=== PATIENT | female | born 1995 | race African-American/Black ===

== ENCOUNTER 2017-01-27 19:30 | Emergency (ER) | payer MEDICAID ==
[~2017-01-27] VITALS: Ht 160 cm; Wt 85.0 kg
[~2017-01-27 19:30] MED LIST: FLUO10TA3 PO; NO MEDS; divalproex sodium PO
[2017-01-27 22:06] LABS: CLARITY URINE CLEAR (CLEAR); COLOR URINE YELLOW (YELLOW); KETONES URINE NEGATIVE (NEGATIVE); LEUKOCYTE ESTERASE URINE NEGATIVE (NEGATIVE); NITRITE URINE NEGATIVE (NEGATIVE); OCCULT BLOOD URINE NEGATIVE (NEGATIVE); PROTEIN URINE NEGATIVE (NEGATIVE); SPECIFIC GRAVITY URINE 1.004 (1.005-1.030); UROBILINOGEN URINE 0.2 E.U./dL (0.2-1.0)
[2017-01-27 22:30] LABS: *AMPHETAMINES SCREEN URINE NEGATIVE (NEGATIVE); *BARBITURATES SCREEN URINE NEGATIVE (NEGATIVE); *BENZODIAZEPINES SCREEN URINE NEGATIVE (NEGATIVE); *COCAINE SCREEN URINE NEGATIVE (NEGATIVE); CANNABINOID URINE SCREEN NEGATIVE (NEGATIVE); METHADONE URINE SCREEN NEGATIVE (NEGATIVE); OPIATES URINE SCREEN NEGATIVE (NEGATIVE); PHENCYCLIDINE URINE SCREEN NEGATIVE (NEGATIVE)
[2017-01-27 22:39] LABS: BASOPHILS % 0.8 % (0.0-2.0); EOSINOPHILS % 1.4 % (0.0-5.0); HEMATOCRIT. 38.2 % (36.0-48.0); LYMPHOCYTES % 26.4 % (20.0-50.0); MEAN CORPUSCULAR HEMOGLOBIN 29.7 pg (28.0-32.0); MEAN CORPUSCULAR VOLUME 87.2 fL (81.0-99.0); MEAN PLATELET VOLUME 9.2 fl (7.4-10.4); MONOCYTES % 4.7 % (2.0-8.0); NEUTROPHILS % 66.7 % (40.0-76.0); PLATELET 256 x1000/uL (130-400); RED BLOOD CELL COUNT 4.38 mill/uL (4.2-5.4); RED CELL DISTRIBUTION WIDTH 12.7 % (11.6-14.6)
[2017-01-27 22:50] LABS: CARBON DIOXIDE 26 mEq/L (21-32); CHLORIDE 103 mEq/L (98-107); ETHANOL BLOOD < 10 mg/dL
[2017-01-28] MEDS ORDERED: ARIPIPRAZOLE 10MG TABLET PO ONE (00:15)
[2017-01-28] MEDS ORDERED: ARIPIPRAZOLE 5MG TABLET PO ONE (00:30)
[2017-01-28 22:47] VITALS: BP 120/72
== END 2017-01-28 23:35 ==
LOC: ER 19:55
DX: R45.851 Suicidal ideations (principal); F33.3 Major depressive disorder, recurrent, severe with psychotic symptoms; R11.10 Vomiting, unspecified; N92.6 Irregular menstruation, unspecified; Z88.5 Allergy status to narcotic agent
CPT/HCPCS: 36415; 80053; 80305; 80307; 80329; 81003; 81025; 82962; 85025; 99285; G0482

== ENCOUNTER 2017-10-09 14:30 | Inpatient (IN) | payer MEDICAID ==
[~2017-10-09] VITALS: Ht 162.6 cm; Wt 90.7 kg
[2017-10-09 15:06] LABS: CLARITY URINE CLEAR (CLEAR); COLOR URINE DARK YELLOW (YELLOW); KETONES URINE 3+ (NEGATIVE); LEUKOCYTE ESTERASE URINE NEGATIVE (NEGATIVE); NITRITE URINE NEGATIVE (NEGATIVE); OCCULT BLOOD URINE NEGATIVE (NEGATIVE); PH URINE 5.5 (4.5-8.0); PROTEIN URINE 1+ (NEGATIVE); SPECIFIC GRAVITY URINE 1.025 (1.005-1.030)
[2017-10-09 15:39] LABS: CHLORIDE 101 mEq/L (98-107)
[2017-10-09 15:40] LABS: BASOPHILS % 0.6 % (0.0-2.0); EOSINOPHILS % 0.6 % (0.0-5.0); HEMOGLOBIN. 14.6 g/dL (12.0-16.0); LYMPHOCYTES % 13.3 % (20.0-50.0); MEAN CORPUSCULAR HEMOGLOBIN 31.1 pg (28.0-32.0); MEAN CORPUSCULAR VOLUME 89.2 fL (81.0-99.0); MEAN PLATELET VOLUME 9.6 fl (7.4-10.4); MONOCYTES % 3.3 % (2.0-8.0); NEUTROPHILS % 82.2 % (40.0-76.0); PLATELET 331 x1000/uL (130-400); RED BLOOD CELL COUNT 4.71 mill/uL (4.2-5.4); RED CELL DISTRIBUTION WIDTH 13.2 % (11.6-14.6)
[2017-10-09 15:41] LABS: INR 1.2; PROTHROMBIN TIME 12.2 sec (9.4-11.6)
[2017-10-09] MEDS ORDERED: IOHEXOL-300 100 ML BOTTLE ONE (19:20)
[2017-10-09] MEDS ORDERED: BUPRO PO (23:50)
[2017-10-09] MEDS ORDERED: CARI3CAP PO (23:52)
[2017-10-09] MEDS ORDERED: BUPR150T9 PO (23:54)
[2017-10-10] VITALS: BP 127/82
[2017-10-10 00:05] VITALS: BP 127/82
[2017-10-10] MEDS ORDERED: MAGNESIUM/ALUMINUM HYDROXIDE/SIMETHICONE 30ML UDC PO PRN ×2 (00:15→09:45)
[2017-10-10] MEDS ORDERED: KETOROLAC 30MG/ML VIAL IV PRN (00:15)
[2017-10-10] MEDS ORDERED: ONDANSETRON 4MG ODT PO PRN (00:15)
[2017-10-10] MEDS ORDERED: HYDROCODONE/ACETAMINOPHEN 5/325MG TABLET PO PRN ×2 (00:15→09:45)
[2017-10-10] MEDS ORDERED: IPRATROPIUM/ALBUTEROL 0.5-3(2.5)MG/3ML NEB INH PRN (00:15)
[2017-10-10] MEDS ORDERED: MVI, ADULT NO.1 10 ML, FOLIC ACID 1 MG, THIAMINE HCL 100 MG in SODIUM CHLORIDE 0.9% 1,0... IV NR ×4 (02:00)
[2017-10-10 04:00] VITALS: BP 102/59
[2017-10-10 05:37] LABS: BASOPHILS % 0.2 % (0.0-2.0); EOSINOPHILS % 1.2 % (0.0-5.0); HEMATOCRIT. 38.6 % (36.0-48.0); HEMOGLOBIN. 13.1 g/dL (12.0-16.0); LYMPHOCYTES % 22.1 % (20.0-50.0); MEAN CORPUSCULAR HEMOGLOBIN 30.4 pg (28.0-32.0); MEAN CORPUSCULAR VOLUME 89.7 fL (81.0-99.0); MEAN PLATELET VOLUME 9.5 fl (7.4-10.4); MONOCYTES % 7.6 % (2.0-8.0); NEUTROPHILS % 68.9 % (40.0-76.0); PLATELET 279 x1000/uL (130-400); RED CELL DISTRIBUTION WIDTH 13.2 % (11.6-14.6)
[2017-10-10 05:58] LABS: CHLORIDE 103 mEq/L (98-107)
[2017-10-10 06:15] LABS: CREATINE KINASE 69 IU/L (26-192); CREATINE KINASE MB FRACTION < 0.5 ng/mL (0.5-3.6); HDL CHOLESTEROL 47 mg/dL (40-59); LDL CHOLESTEROL 106 mg/dL (5-100)
[2017-10-10 08:02] VITALS: BP 109/77
[2017-10-10 08:43] LABS: *AMPHETAMINES SCREEN URINE NEGATIVE (NEGATIVE); *BARBITURATES SCREEN URINE NEGATIVE (NEGATIVE); *BENZODIAZEPINES SCREEN URINE NEGATIVE (NEGATIVE)
[2017-10-10 08:45] LABS: *COCAINE SCREEN URINE NEGATIVE (NEGATIVE); CANNABINOID URINE SCREEN NEGATIVE (NEGATIVE); METHADONE URINE SCREEN NEGATIVE (NEGATIVE); OPIATES URINE SCREEN NEGATIVE (NEGATIVE); PHENCYCLIDINE URINE SCREEN NEGATIVE (NEGATIVE)
[2017-10-10] MEDS ORDERED: BUPROPION HCL 150MG TABLET XL 24HR PO SCH (09:00)
[2017-10-10] MEDS ORDERED: CARIPRAZINE HYDROCHLORIDE 3 MG PO SCH (09:00)
[2017-10-10] MEDS ORDERED: FLUOXETINE HCL 10 MG CAPSULE PO SCH (09:00)
[2017-10-10] MEDS ORDERED: ENOXAPARIN 30MG/0.3ML SYR SUBCUT SCH (09:00)
[2017-10-10] MEDS ORDERED: FLUOXETINE HCL PO SCH (09:00)
[2017-10-10] MEDS ORDERED: DIVALPROEX SODIUM 125MG EC TABLET PO SCH (09:00)
[2017-10-10] MEDS ORDERED: DIVALPROEX SODIUM 125 MG PO SCH (09:00)
[2017-10-10] MEDS ORDERED: LORAZEPAM 0.5MG TABLET PO PRN (09:45)
[2017-10-10] MEDS ORDERED: HYDROCODONE/ACETAMINOPHEN 10/325MG TABLET PO PRN (09:45)
[2017-10-10] MEDS ORDERED: NA PHOS,M-B/NA PHOS,DI-BA ENEMA 118ML PR PRN (09:45)
[2017-10-10] MEDS ORDERED: DOCUSATE SODIUM 100MG CAPSULE PO PRN (09:45)
[2017-10-10] MEDS ORDERED: ACETAMINOPHEN 325MG TABLET PO PRN (09:45)
[2017-10-10] MEDS ORDERED: ONDANSETRON HCL 4MG/2ML VIAL IV PRN (09:45)
[2017-10-10] MEDS ORDERED: ACETAMINOPHEN 650MG SUPP PR PRN (09:45)
[2017-10-10] MEDS ORDERED: DIPHENHYDRAMINE 50MG/ML VIAL IV PRN (09:45)
[2017-10-10] MEDS ORDERED: ACETAMINOPHEN 650MG/20.3ML UDC GT PRN (09:45)
[2017-10-10] MEDS ORDERED: GUAIFENESIN 200MG/10ML SUGAR FREE UDC PO PRN (09:45)
[2017-10-10] MEDS ORDERED: CLONIDINE 0.1MG TABLET PO PRN (09:45)
[2017-10-10 10:46] LABS: HCG SCREEN NEGATIVE
[2017-10-10] MEDS ORDERED: SODIUM CHLORIDE 0.9% 1,000 ML IV SCH (11:00)
[2017-10-10 12:06] VITALS: BP 111/60
[2017-10-10 12:07] LABS: HEPATITIS B SURFACE ANTIGEN NEGATIVE
[2017-10-10 12:35] LABS: HEPATITIS B CORE AB IGM NEGATIVE
[2017-10-10 12:37] LABS: HEPATITIS A AB IGM NEGATIVE (NEGATIVE)
[2017-10-10 13:50] VITALS: BP 111/60
[2017-10-10] MEDS ORDERED: ATORVASTATIN CALCIUM 10MG TABLET PO SCH (21:00)
== END 2017-10-10 15:12 | disposition home or self-care (01) | DRG 282 ==
LOC: ER 14:30 → 6EST 20:11 → ENRESERV 22:28
PROVIDERS: ADMIT Internal Medicine; ATTEND Internal Medicine
DX: K85.90 Acute pancreatitis without necrosis or infection, unspecified (principal); K76.0 Fatty (change of) liver, not elsewhere classified; E11.65 Type 2 diabetes mellitus with hyperglycemia; F32.9 Major depressive disorder, single episode, unspecified; E78.1 Pure hyperglyceridemia; R74.0 Nonspecific elevation of levels of transaminase and lactic acid dehydrogenase [LDH]; K85.00 Idiopathic acute pancreatitis without necrosis or infection; Z88.6 Allergy status to analgesic agent; Z79.899 Other long term (current) drug therapy
CPT/HCPCS: 36415; 71045; 74022; 74177; 76857; 80053; 80061; 80165; 80305; 81003; 81025; 82550; 82553; 83036; 83690; 84443; 84484; 84703; 85025; 85610; 86705; 86709; 86803; 87040; 87086; 87340; 93970; 99285; G0482; J1650; J3411; J3490; J7030; Q9967

== ENCOUNTER 2022-08-04 18:28 | Emergency (ER) | payer MEDICAID ==
[~2022-08-04] VITALS: Ht 162.6 cm; Wt 77.0 kg
[~2022-08-04 18:28] MED LIST changes: +BUPR-114 PO; +BUPRO PO; +CARI3CAP PO
[2022-08-04 18:48] VITALS: BP 133/79
[2022-08-04] MEDS ORDERED: DEXAMETHASONE 10 MG/ML VIAL IV ONE (21:15)
== END 2022-08-04 21:50 | disposition home or self-care (01) ==
LOC: ER 18:28
DX: J02.9 Acute pharyngitis, unspecified (principal); Z59.00 Homelessness unspecified; F32.9 Major depressive disorder, single episode, unspecified; E11.9 Type 2 diabetes mellitus without complications; Z79.899 Other long term (current) drug therapy; Z20.822 Contact with and (suspected) exposure to COVID-19
CPT/HCPCS: 81025; 87070; 87426; 87430; 87804; 96374; 99283; C9803; J1100

== ENCOUNTER 2022-11-13 08:43 | Emergency (ER) | payer MEDICAID ==
[~2022-11-13] VITALS: Ht 162.6 cm; Wt 91.0 kg
[~2022-11-13 08:43] MED LIST changes: -FLUO10TA3 PO; +FLUO10TA34 PO
[2022-11-13 08:54] VITALS: BP 116/75
[2022-11-13] MEDS ORDERED: D-ME473S50 PO (09:20)
== END 2022-11-13 09:41 | disposition home or self-care (01) ==
LOC: ER 08:43
DX: J06.9 Acute upper respiratory infection, unspecified (principal); E11.9 Type 2 diabetes mellitus without complications
CPT/HCPCS: 99281